=== PATIENT | male | born 1975 | race Hispanic/Latino ===

== ENCOUNTER 2022-10-13 19:49 | Emergency (ER) | payer SELFPAY ==
[~2022-10-13] VITALS: Ht 182.9 cm; Wt 115.7 kg
[2022-10-13] MEDS ORDERED: METFORMIN HCL500 MG PO (20:35)
[2022-10-13] MEDS ORDERED: CLINDAMYCIN HC150 MG PO (20:35)
[2022-10-13] MEDS ORDERED: MUPIROCIN22 GM TOP (20:35)
[2022-10-13] MEDS ORDERED: IBUPROFEN800 MG PO (20:37)
== END 2022-10-13 20:59 | disposition home or self-care (01) ==
LOC: FSED 19:53
DX: L02.612 Cutaneous abscess of left foot (principal); E11.9 Type 2 diabetes mellitus without complications; Z91.148 Patient's other noncompliance with medication regimen for other reason
CPT/HCPCS: 99282